=== PATIENT | male | born 1945 | race Caucasian/White ===

== ENCOUNTER → 2016-12-16 | Outpatient (CLI) | payer BC ==
[2016-04-26 11:00] VITALS: BP 119/63
[~2016-12-16] MED LIST: ASCO500T PO; ASCO500T2 PO; ASPI-612 PO; ASPI-630 PO; ATOR20TA PO; ATOR20TA58 PO; EZET10TA18 PO; LISI2.5T PO; METO-269 PO; METO10TA81 PO; METO25TA4 PO; MULT-240 PO; MULT1TAB6 PO; NAPR-634 PO; NIAC500T9 PO; OMEG1CAP27 PO; OMEG500C PO; PANT40TA5 PO; PRAS10TA9 PO; PRAV40TA2 PO; PROM25TA10 PO; VENTOLIN HFA18 GM IH
--- NOTE | 2016-12-17 11:03 | CARD ---
APPROVED REPORT EXAM: Two-dimensional and M-mode echocardiogram with Doppler and color Doppler. Other Information Quality : Average Rhythm : Pacemaker INDICATION Cardiac Disease: CAD 2D DIMENSIONS RVDd3.3 (2.9-3.5cm)Left Atrium(2D)3.6 (1.6-4.0cm) IVSd1.1 (0.7-1.1cm)Aortic Root(2D)3.1 (2.0-3.7cm) LVDd4.6 (3.9-5.9cm)LVOT Diameter2.0 (1.8-2.4cm) PWd1.1 (0.7-1.1cm)LVDs2.9 (2.5-4.0cm) FS (%) 30.7 %SV66.8 ml LVEF(%)60.9 (>50%) Aortic Valve AoV Peak Sheldon.253.4cm/sAoV VTI55.4cm AO Peak GR.25.7mmHgLVOT Peak Sheldon.65.3cm/s LVOT VTI 12.52cmAO Mean GR.15mmHg JIN (VTI)0.80cm2 Mitral Valve MV E Pwlizwjb073.4cm/sMV DECEL RRMW519ua MV A Jsiueamn94.9cm/sMV E Mean Gr.4mmHg MV MZC68huQ/A Ratio2.5 MV A Wvdzreps57eeSPI (PHT)5.50cm2 TDI E/Lateral E'6.0E/Medial E'5.1 Pulmonary Valve PV Peak Mojgzkzk74.9cm/sPV Peak Grad.3mmHg Tricuspid Valve TR P. Ykzgqnqs543jy/sRAP UYLVNSRC5kbYn TR Peak Gr.01xjCcFFTT88ehDh LEFT VENTRICLE The left ventricle is normal size. There is normal left ventricular wall thickness. Left ventricle sy stolic function is normal. The Ejection Fraction is 55-60%. Apical motion consistent with pacemaker a ctivation. The left ventricular diastolic function and filling is normal for age. There is no ventric ular septal defect visualized. RIGHT VENTRICLE The right ventricle is normal size. The right ventricular systolic function is normal. There is a pac emaker lead seen in the RV/RA. ATRIA The left atrium size is normal. The right atrium size is normal. The interatrial septum is intact wit h no evidence for an atrial septal defect or patent foramen ovale as noted on 2-D or Doppler imaging. AORTIC VALVE The aortic valve is moderately calcified and displays decreased opening. Doppler and Color Flow revea led no significant aortic regurgitation. Mild aortic stenosis with maximum pressure gradient of 26 mm Hg and mean pressure gradient of 15 mmHg. MITRAL VALVE Mitral annular calcification is mild to moderate. The mitral valve leaflets are thickened and calcifi ed. There is no mitral valve stenosis. Doppler and Color Flow revealed no mitral valve regurgitation noted. TRICUSPID VALVE The tricuspid valve is normal in structure and function. Doppler and Color Flow revealed mild tricusp id regurgitation. The PA pressure was estimated at 46 mmHg. There is no tricuspid valve stenosis. PULMONIC VALVE The pulmonic valve is not well visualized. Doppler and Color Flow revealed no pulmonic valvular regur gitation. There is no pulmonic valvular stenosis. GREAT VESSELS The aortic root is normal in size. The ascending aorta is normal in size. Pulmonary veins not well vi sualized. The IVC is normal in size and collapses >50% with inspiration. PERICARDIAL EFFUSION There is no evidence of significant pericardial effusion. Critical Notification Critical Value: No <Conclusion> Left ventricle systolic function is normal. The Ejection Fraction is 55-60%. There is a pacemaker lead seen in the RV/RA. Mild aortic stenosis with maximum pressure gradient of 26 mmHg and mean pressure gradient of 15 mmHg. Mild tricuspid regurgitation. The PA pressure was estimated at 46 mmHg. There is no evidence of significant pericardial effusion.
== END | disposition home or self-care (01) ==
LOC: ECHO 07:32
PROVIDERS: ATTEND Internal Medicine Cardiovascular Disease
DX: I25.10 Atherosclerotic heart disease of native coronary artery without angina pectoris (principal); I35.0 Nonrheumatic aortic (valve) stenosis; I07.1 Rheumatic tricuspid insufficiency
CPT/HCPCS: 93306

== ENCOUNTER → 2017-02-11 | Outpatient (CLI) | payer BC ==
[2016-04-26 11:00] VITALS: BP 119/63
--- NOTE | 2017-02-11 09:03 | RAD ---
CT of the chest without contrast, 02/11/2017: History: Cough Noncontrast scans were obtained as requested. There are 2 transvenous pacing leads extending into the right heart. There is moderate calcific plaquing of the thoracic aorta and its branches including the coronary arteries. No aortic aneurysm is evident. No mediastinal adenopathy is seen. A couple of minimal parenchymal scars are noted. No pulmonary mass or significant infiltrate is seen. There is no evidence of pleural fluid. There are moderate scattered degenerative changes in the thoracic spine. IMPRESSION: 1. Moderate calcific plaquing of the aorta and its branches including the coronary arteries. 2. No acute chest abnormality is detected. PQRS Compliance Statement: One or more of the following individualized dose reduction techniques were utilized for this examination: 1. Automated exposure control 2. Adjustment of the mA and/or kV according to patient size 3. Use of iterative reconstruction technique
== END | disposition home or self-care (01) ==
LOC: CT 07:37
PROVIDERS: ATTEND Family Medicine
DX: I70.0 Atherosclerosis of aorta (principal); R05 Cough
CPT/HCPCS: 71250

== ENCOUNTER → 2017-08-19 | Outpatient (CLI) | payer BC | END | disposition home or self-care (01) | LOC: RAD 13:45 | DX: M17.12 Unilateral primary osteoarthritis, left knee (principal); I10 Essential (primary) hypertension; E78.5 Hyperlipidemia, unspecified | CPT/HCPCS: 73562 ==

== ENCOUNTER → 2017-09-08 | Outpatient (CLI) | payer BC ==
[2017-09-08 08:39] LABS: ADD MAN DIFF? NO
[2017-09-08 08:49] LABS: BASO # 0.1 x10^3/uL (0.0-0.2); BASO % 1 % (0-3); EOS # 0.3 x10^3/uL (0.0-0.7); EOS % 4 % (0-3); HEMATOCRIT 49.2 % (39.0-53.0); HEMOGLOBIN 16.7 g/dL (13.0-17.5); LYMPH # 1.2 x10^3/uL (1.0-4.8); LYMPH % 17 % (24-48); MEAN CORPUSCULAR HEMOGLOBIN 32 pg (25-35); MEAN CORPUSCULAR HGB CONC 34 g/dL (31-37); MEAN CORPUSCULAR VOLUME 94 fL (79-100); MONO # 0.8 x10^3/uL (0.0-1.1); MONO % 12 % (0-9); NEUT # 4.4 x10^3uL (1.8-7.7); NEUT % 65 % (31-73); PLATELET COUNT 214 x10^3/uL (140-400); RED BLOOD COUNT 5.23 x10^6/uL (4.30-5.70); RED CELL DISTRIBUTION WIDTH 13.8 % (11.5-14.5); WHITE BLOOD COUNT 6.7 x10^3/uL (4.0-11.0)
[2017-09-08 08:55] LABS: ANION GAP 7 (6-14); BLOOD UREA NITROGEN 20 mg/dL (8-26); CALCIUM 9.3 mg/dL (8.5-10.1); CARBON DIOXIDE 34 mmol/L (21-32); CHLORIDE 102 mmol/L (98-107); CREATININE 0.7 mg/dL (0.7-1.3); GFR 111.2; GLUCOSE 112 mg/dL (70-99); POTASSIUM 4.3 mmol/L (3.5-5.1); SODIUM 143 mmol/L (136-145)
== END | disposition home or self-care (01) ==
LOC: LAB 07:52
DX: N40.1 Benign prostatic hyperplasia with lower urinary tract symptoms (principal); R79.89 Other specified abnormal findings of blood chemistry
CPT/HCPCS: 36415; 80048; 85025; 93005

== ENCOUNTER 2017-09-22 12:18 | Day surgery (SDC) | payer BC ==
[2017-09-22] MEDS: IV RINGERS,LACTATED 1000ML 1,000 ML IV (13:40)
[2017-09-22] MEDS ORDERED: fentaNYL PF VIAL 100 MCG/2 ML VIAL ×2 (13:47→16:00)
[2017-09-22] MEDS ORDERED: ONDANSETRON PF 4 MG/2 ML VIAL. (13:47)
[2017-09-22] MEDS ORDERED: LIDOCAINE 2% PF Vial for OR 5 ML VIAL. (13:47)
[2017-09-22] MEDS ORDERED: DEXAMETHASONE SOD PHOS 20 MG/5 ML VIAL. (13:47)
[2017-09-22] MEDS ORDERED: PROPOFOL 20 ML IV ×2 (13:47→14:45)
[2017-09-22] MEDS ORDERED: SUCCINYLCHOLINE 200 MG/10 ML VIAL. (13:51)
[2017-09-22] MEDS: CIPROFLOXACIN 400MG PREMIX 200 ML IV (14:30)
[2017-09-22] MEDS: LIDOCAINE 2% JELLY 6ML IN APPLICATOR. (15:34)
[2017-09-22] MEDS ORDERED: IV RINGERS,LACTATED 1000ML 1,000 ML IV ×2 (16:04→16:15)
[2017-09-22] MEDS ORDERED: LIDOCAINE 1% PF 2 ML VIAL. ID ×2 (16:15→16:30)
[2017-09-22] MEDS ORDERED: HYDROcodone/APAP 5/325MG 1 TAB TABLET PO (16:15)
[2017-09-22] MEDS ORDERED: MORPHINE SULFATE 2 MG/ML DISP.SYRIN. IV (16:15)
[2017-09-22] MEDS ORDERED: PROCHLORPERAZINE 10 MG/2 ML VIAL. IV ×2 (16:15→16:30)
[2017-09-22] MEDS ORDERED: fentaNYL PF VIAL 100 MCG/2 ML VIAL IV ×3 (16:15→16:30)
[2017-09-22] MEDS: fentaNYL PF VIAL 100 MCG/2 ML VIAL IV (16:15)
[2017-09-22] MEDS ORDERED: HYDROcodone/APAP 5/325MG 1 TAB TABLET (16:21)
[2017-09-22] MEDS ORDERED: MORPHINE SULFATE 4 MG/ML DISP.SYRIN. IV (16:30)
[2017-09-22] MEDS: HYDROcodone/APAP 5/325MG 1 TAB TABLET PO (16:34)
== END 2017-09-22 17:57 | disposition home or self-care (01) ==
LOC: SURG 12:18
DX: N40.1 Benign prostatic hyperplasia with lower urinary tract symptoms (principal); N13.8 Other obstructive and reflux uropathy; N35.8 Other urethral stricture; Z79.82 Long term (current) use of aspirin; Z79.899 Other long term (current) drug therapy; Z88.8 Allergy status to other drugs, medicaments and biological substances; Z98.890 Other specified postprocedural states; Z90.49 Acquired absence of other specified parts of digestive tract; Z95.5 Presence of coronary angioplasty implant and graft; Z95.0 Presence of cardiac pacemaker; E78.00 Pure hypercholesterolemia, unspecified; Z82.3 Family history of stroke; F17.210 Nicotine dependence, cigarettes, uncomplicated; Z72.89 Other problems related to lifestyle; I25.10 Atherosclerotic heart disease of native coronary artery without angina pectoris; I10 Essential (primary) hypertension; J44.9 Chronic obstructive pulmonary disease, unspecified; G47.30 Sleep apnea, unspecified; M19.90 Unspecified osteoarthritis, unspecified site; Z85.820 Personal history of malignant melanoma of skin; Z82.49 Family history of ischemic heart disease and other diseases of the circulatory system
CPT/HCPCS: 52648; A7015; J0330; J1100; J2405; J2704; J3010; J7120

== ENCOUNTER 2018-06-12 09:39 | Emergency (ER) | payer BC ==
[~2018-06-12] VITALS: Ht 182.9 cm; Wt 127.0 kg
[~2018-06-12 09:39] MED LIST changes: +HYDR-3164 PO; -PANT40TA5 PO; +PANT40TA77 PO; +PHEN100T82 PO
[2018-06-12 10:38] LABS: BASO # 0.1 x10^3/uL (0.0-0.2); BASO % 1 % (0-3); EOS # 0.2 x10^3/uL (0.0-0.7); EOS % 4 % (0-3); HEMOGLOBIN 17.1 g/dL (13.0-17.5); LYMPH % 15 % (24-48); MEAN CORPUSCULAR HEMOGLOBIN 31 pg (25-35); MEAN CORPUSCULAR HGB CONC 33 g/dL (31-37); MEAN CORPUSCULAR VOLUME 96 fL (79-100); MONO # 0.8 x10^3/uL (0.0-1.1); MONO % 11 % (0-9); NEUT # 4.6 x10^3uL (1.8-7.7); NEUT % 69 % (31-73); PLATELET COUNT 215 x10^3/uL (140-400); RED BLOOD COUNT 5.45 x10^6/uL (4.30-5.70); RED CELL DISTRIBUTION WIDTH 14.3 % (11.5-14.5); WHITE BLOOD COUNT 6.7 x10^3/uL (4.0-11.0)
[2018-06-12 10:45] LABS: INFLUENZA A PATIENT NEGATIVE (NEGATIVE); INFLUENZA B PATIENT POSITIVE (NEGATIVE)
[2018-06-12 10:58] LABS: CALCIUM 9.1 mg/dL (8.5-10.1); CREATININE 0.8 mg/dL (0.7-1.3); POTASSIUM 4.1 mmol/L (3.5-5.1)
[2018-06-12 11:04] LABS: ALBUMIN 3.5 g/dL (3.4-5.0); ALBUMIN/GLOBULIN RATIO 0.9 (1.0-1.7); TOTAL BILIRUBIN 0.3 mg/dL (0.2-1.0); TOTAL PROTEIN 7.4 g/dL (6.4-8.2)
--- NOTE | 2018-06-12 11:04 | RAD ---
Indication:Dyspnea TECHNIQUE:Portable AP chest X-ray COMPARISON: None FINDINGS: Heart is top normal in size. Left chest wall cardiac pacer with its leads ejecting over the heart. Prominent central bilateral bronchial markings. No focal consolidation. No pneumothorax or effusion. Visualized bony thorax within normal limits. IMPRESSION: Findings suggests bronchitis. Electronically signed by: Justin Quezada DO (06/12/2018 10:59 AM) [facility]
[2018-06-12 11:52] LABS: BILIRUBIN,URINE NEGATIVE (NEG); CLARITY,URINE CLEAR; COLOR,URINE YELLOW; NITRITE,URINE NEGATIVE (NEG); PROTEIN,URINE 100 mg/dL (NEG-TRACE)
[2018-06-12 11:56] LABS: SQUAMOUS EPITHELIAL CELL,UR FEW /LPF
[2018-06-12 11:57] LABS: BACTERIA,URINE FEW /HPF (0-FEW)
[2018-06-12] MEDS ORDERED: IPRATRPIUM/ALBUTEROL 0.5/2.5MG 3 ML NEBU. NEB ONE (13:00)
[2018-06-12] MEDS ORDERED: AMOX1TAB61 PO (13:29)
[2018-06-12] MEDS ORDERED: METH4TAB2 PO (13:29)
--- NOTE | 2018-06-12 13:29 | PHYS DOC ---
Past Medical History Past Medical History: COPD, Diverticulitis, High Cholesterol, Hypertension, Other Additional Past Medical Histor: sick sinus syndrome Past Surgical History: Angioplasty, Appendectomy, Cholecystectomy, Pacemaker, Tonsillectomy Alcohol Use: Occasionally Drug Use: None Adult General Chief Complaint Chief Complaint: SHORTNESS OF BREATH [facility] HPI Patient is a 73-year-old male who presents with complaint of cough, wheezing and shortness of breath last week. Patient states that he feels like he is been running a fever but is not sure. Patient states that over the last couple of days that shortness of breath is worsened. He does admit to a history of COPD. Patient states that he has also had a cough that has been productive of yellow- green sputum. He denies any chest pain and has had no nausea, vomiting or diaphoresis. Patient states that the chest pain is worsened with exertion. Review of Systems Review of Systems Constitutional: Positive subjective fever and chills [] HENT: [place] of congestion[] Respiratory: Complains of cough, wheezing and shortness of breath [] Cardiovascular: No additional information not addressed in HPI [] GI: Denies abdominal pain, nausea, vomiting or diarrhea [] Integument: Denies rash or skin lesions [] Neurologic: Denies headache, focal weakness or sensory changes [] All other systems were reviewed and found to be within normal limits, except as documented in this note. Current Medications Current Medications Current Medications Medications (Trade) Dose Ordered Sig/Reynaldo Start Time Stop Time Status Last Admin Dose Admin Albuterol/ Ipratropium (Duoneb) 3 ml 1X ONCE 06/12/18 13:00 06/12/18 13:01 DC 06/12/18 12:49 3 ML Allergies Allergies Allergies Coded Allergies Type Severity Reaction Last Updated Verified Qkjfkpl-Bzq-Qpc Reductase Inhibitor Adverse Reaction Severe 09/21/17 Yes Physical Exam Physical Exam Constitutional: Well developed, well nourished, no acute distress, non-toxic appearance. [] HENT: Normocephalic, atraumatic, bilateral external ears normal, oropharynx moist, no oral exudates, nose normal. [] Eyes: PERRLA, EOMI, conjunctiva normal, no discharge. [] Neck: Normal range of motion, no tenderness, supple. [] Cardiovascular: Regular rate and rhythm[] Lungs & Thorax: There are inspiratory and expiratory wheezes as well as fine rhonchi in the lung bases to auscultation [] Abdomen: Bowel sounds normal, soft, no tenderness. [] Skin: Warm, dry, no erythema, no rash. [] Extremities: No tenderness, no cyanosis, no clubbing, ROM intact, with lower extremity edema. [] Neurologic: Alert and oriented X 3, no focal deficits noted. [] Current Patient Data Vital Signs Vital Signs Date Time Temp Pulse Resp B/P (MAP) Pulse Ox O2 Delivery O2 Flow Rate FiO2 06/12/18 13:30 76 158/74 (102) 96 Room Air 06/12/18 09:59 98.7 22 98.7 Lab Values Laboratory Tests Test 06/12/18 10:12 06/12/18 10:15 06/12/18 11:10 Influenza Type A Antigen Negative (NEGATIVE) Influenza Type B Antigen Positive (NEGATIVE) White Blood Count 6.7 x10^3/uL (4.0-11.0) Red Blood Count 5.45 x10^6/uL (4.30-5.70) Hemoglobin 17.1 g/dL (13.0-17.5) Hematocrit 52.0 % (39.0-53.0) Mean Corpuscular Volume 96 fL (79-100) Mean Corpuscular Hemoglobin 31 pg (25-35) Mean Corpuscular Hemoglobin Concent 33 g/dL (31-37) Red Cell Distribution Width 14.3 % (11.5-14.5) Platelet Count 215 x10^3/uL (140-400) Neutrophils (%) (Auto) 69 % (31-73) Lymphocytes (%) (Auto) 15 % (24-48) L Monocytes (%) (Auto) 11 % (0-9) H Eosinophils (%) (Auto) 4 % (0-3) H Basophils (%) (Auto) 1 % (0-3) Neutrophils # (Auto) 4.6 x10^3uL (1.8-7.7) Lymphocytes # (Auto) 1.0 x10^3/uL (1.0-4.8) Monocytes # (Auto) 0.8 x10^3/uL (0.0-1.1) Eosinophils # (Auto) 0.2 x10^3/uL (0.0-0.7) Basophils # (Auto) 0.1 x10^3/uL (0.0-0.2) Sodium Level 142 mmol/L (136-145) Potassium Level 4.1 mmol/L (3.5-5.1) Chloride Level 102 mmol/L (98-107) Carbon Dioxide Level 32 mmol/L (21-32) Anion Gap 8 (6-14) Blood Urea Nitrogen 19 mg/dL (8-26) Creatinine 0.8 mg/dL (0.7-1.3) Estimated GFR (Cockcroft-Gault) 95.0 BUN/Creatinine Ratio 24 (6-20) H Glucose Level 98 mg/dL (70-99) Calcium Level 9.1 mg/dL (8.5-10.1) Total Bilirubin 0.3 mg/dL (0.2-1.0) Aspartate Amino Transferase (AST) 22 U/L (15-37) Alanine Aminotransferase (ALT) 32 U/L (16-63) Alkaline Phosphatase 69 U/L (46-116) Troponin I Quantitative < 0.017 ng/mL (0.000-0.055) VA-Wlf-F-Type Natriuretic Peptide 536 pg/mL (0-124) H Total Protein 7.4 g/dL (6.4-8.2) Albumin 3.5 g/dL (3.4-5.0) Albumin/Globulin Ratio 0.9 (1.0-1.7) L Urine Collection Type Unknown Urine Color Yellow Urine Clarity Clear Urine pH 6.0 Urine Specific Arp >=1.030 Urine Protein 100 mg/dL (NEG-TRACE) Urine Glucose (UA) Negative mg/dL (NEG) Urine Ketones (Stick) Negative mg/dL (NEG) Urine Blood Negative (NEG) Urine Nitrite Negative (NEG) Urine Bilirubin Negative (NEG) Urine Urobilinogen Dipstick 1.0 mg/dL (0.2 mg/dL) Urine Leukocyte Esterase Negative (NEG) Urine RBC 1-2 /HPF (0-2) Urine WBC 1-4 /HPF (0-4) Urine Squamous Epithelial Cells Few /LPF Urine Bacteria Few /HPF (0-FEW) Urine Mucus Marked /LPF Laboratory Tests 06/12/18 10:15 Laboratory Tests 06/12/18 10:15 EKG EKG [] Radiology/Procedures Radiology/Procedures [] Impressions: PROCEDURE: PORTABLE CHEST 1V Indication:Dyspnea TECHNIQUE:Portable AP chest X-ray COMPARISON: None FINDINGS: Heart is top normal in size. Left chest wall cardiac pacer with its leads ejecting over the heart. Prominent central bilateral bronchial markings. No focal consolidation. No pneumothorax or effusion. Visualized bony thorax within normal limits. IMPRESSION: Findings suggests bronchitis. Electronically signed by: Justin Quezada DO (06/12/2018 10:59 AM) [facility] Course & Med Decision Making Course & Med Decision Making Pertinent Labs and Imaging studies reviewed. (See chart for details) [] Dragon Disclaimer Dragon Disclaimer This electronic medical record was generated, in whole or in part, using a voice recognition dictation system. Departure Departure Impression: Primary Impression: Acute bronchitis Additional Impression: Influenza B Disposition: 01 HOME, SELF-CARE Condition: STABLE Referrals: KYLE ONOFRE MD (PCP) Patient Instructions: Acute Bronchitis, Influenza, Adult Scripts Methylprednisolone (MEDROL) 4 Mg Tab.ds.pk 1 PKG PO UD, #1 PKG Prov: HOLLIS GALAVIZ Jr., DO 06/12/18 Amoxicillin/Potassium Clav (AUGMENTIN 875-125 TABLET) 1 Each Tablet 1 TAB PO BID, #20 TAB Prov: HOLLIS GALAVIZ Jr., DO 06/12/18 Problem Qualifiers Primary Impression: Acute bronchitis Bronchitis organism: unspecified organism Qualified Codes: J20.9 - Acute bronchitis, unspecified HOLLIS GALAVIZ Jr., DO Jun 12, 2018 13:29
[2018-06-12 13:30] VITALS: BP 158/74
--- NOTE | 2018-06-14 11:06 | EKG ---
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
== END 2018-06-12 13:40 | disposition home or self-care (01) ==
LOC: ER 09:39
DX: J10.1 Influenza due to other identified influenza virus with other respiratory manifestations (principal); J20.9 Acute bronchitis, unspecified; J44.9 Chronic obstructive pulmonary disease, unspecified; E78.00 Pure hypercholesterolemia, unspecified; I10 Essential (primary) hypertension; Z95.0 Presence of cardiac pacemaker; Z95.5 Presence of coronary angioplasty implant and graft; Z90.89 Acquired absence of other organs; Z90.49 Acquired absence of other specified parts of digestive tract; Z91.041 Radiographic dye allergy status
CPT/HCPCS: 36415; 71045; 80053; 81001; 83880; 84484; 85025; 87804; 93005; 94640; 99284; J7620

== ENCOUNTER → 2018-09-30 | Outpatient (CLI) | payer BC ==
[~2018-09-30] MED LIST changes: +AMOX1TAB61 PO; +METH4TAB2 PO; +PANT40TA5 PO; -PANT40TA77 PO
[2018-09-30 08:32] LABS: BASO # 0.1 x10^3/uL (0.0-0.2); BASO % 1 % (0-3); EOS # 0.4 x10^3/uL (0.0-0.7); EOS % 5 % (0-3); HEMATOCRIT 52.4 % (39.0-53.0); HEMOGLOBIN 17.3 g/dL (13.0-17.5); LYMPH # 1.2 x10^3/uL (1.0-4.8); LYMPH % 17 % (24-48); MEAN CORPUSCULAR HEMOGLOBIN 31 pg (25-35); MEAN CORPUSCULAR HGB CONC 33 g/dL (31-37); MEAN CORPUSCULAR VOLUME 94 fL (79-100); MONO # 0.9 x10^3/uL (0.0-1.1); MONO % 12 % (0-9); NEUT # 4.6 x10^3uL (1.8-7.7); NEUT % 65 % (31-73); PLATELET COUNT 207 x10^3/uL (140-400); RED BLOOD COUNT 5.56 x10^6/uL (4.30-5.70); RED CELL DISTRIBUTION WIDTH 14.5 % (11.5-14.5); WHITE BLOOD COUNT 7.2 x10^3/uL (4.0-11.0)
[2018-09-30 09:19] LABS: ALBUMIN 3.6 g/dL (3.4-5.0); ALBUMIN/GLOBULIN RATIO 1.1 (1.0-1.7); CALCIUM 9.7 mg/dL (8.5-10.1); CREATININE 0.9 mg/dL (0.7-1.3); GFR 82.9; POTASSIUM 5.1 mmol/L (3.5-5.1); TOTAL BILIRUBIN 0.4 mg/dL (0.2-1.0)
== END | disposition home or self-care (01) ==
LOC: LAB 07:59
PROVIDERS: ATTEND Psychiatry & Neurology Neurology
DX: R53.1 Weakness (principal)
CPT/HCPCS: 36415; 80053; 82550; 82607; 84443; 85025

== ENCOUNTER → 2018-10-18 | Outpatient (CLI) | payer BC ==
--- NOTE | 2018-10-18 17:34 | KCIC ---
LUMBAR SPINE 1V History: Chronic low back pain Comparison: None. Findings: Single lateral view of the lumbar spine is submitted, only lateral view as per request. Vertebral body stature is maintained. There is negligible anterior spondylolisthesis at L4-5, very minimal posterior subluxation L1 relative to to L2 and L2 relative to L3. There is multilevel lumbar facet degenerative change. There is mild tube moderate degenerative disc disease L1-L2, minimally at L2-3 and L4-5. There is multilevel mild spondylosis greatest at L2-3. There is atherosclerotic calcification of the abdominal aorta, also likely aneurysmal dilatation of the abdominal aorta. Impression: 1. There is multilevel spondylosis, also degenerative disc disease as stated. There is multilevel lumbar facet degenerative change. 2. There is atherosclerotic calcification abdominal aorta, also degree of aneurysmal dilatation poorly characterized on this exam. Electronically signed by: Mohit Stokes MD (10/18/2018 5:31 PM) [id number]
--- NOTE | 2018-10-19 12:37 | KCIC ---
KNEE STANDING BILAT AP History: DJD of both knees, pain greater on the left Comparison: None. Findings: AP standing view of the bilateral knees are submitted. Knee joint spaces are relatively preserved, no acute fracture or dislocation identified. Impression: 1. No acute osseous abnormality is identified. Electronically signed by: Mohit Stokes MD (10/19/2018 12:34 PM) [id number]
== END | disposition home or self-care (01) ==
LOC: KCIC 11:30
PROVIDERS: ATTEND Physical Medicine & Rehabilitation
DX: S33.110A Subluxation of L1/L2 lumbar vertebra, initial encounter (principal); M47.816 Spondylosis without myelopathy or radiculopathy, lumbar region; M17.0 Bilateral primary osteoarthritis of knee; I70.0 Atherosclerosis of aorta; G89.29 Other chronic pain; X58.XXXA Exposure to other specified factors, initial encounter; Y93.89 Activity, other specified; Y92.89 Other specified places as the place of occurrence of the external cause; Y99.8 Other external cause status
CPT/HCPCS: 72020; 73565

== ENCOUNTER → 2018-10-27 | Outpatient (CLI) | payer BC ==
[~2018-10-27] MED LIST changes: -PANT40TA5 PO; +PANT40TA77 PO
[2018-10-27 11:55] LABS: POTASSIUM 4.3 mmol/L (3.5-5.1)
== END | disposition home or self-care (01) ==
LOC: LAB 11:11
PROVIDERS: ATTEND Psychiatry & Neurology Neurology
DX: R53.1 Weakness (principal)
CPT/HCPCS: 80051; 83519; 83520; 84238

== ENCOUNTER → 2018-11-08 | Outpatient (CLI) | payer BC ==
--- NOTE | 2018-11-08 08:29 | RAD ---
Examination: CT CERVICAL SPINE WO CONTRAST History: Weakness, gait instability Comparison/Correlation: None Findings: Axial images of the cervical spine are obtained. Sagittal and coronal reformatted images were provided. Moderate C4-5 and C5-6 disc space narrowing. Severe C6/7 disc space narrowing. Soft tissues of the neck are unremarkable other than calcific involvement of the carotid bulb bilaterally. Atlantoaxial joint degenerative remodeling is present. C2-3: Minimal central disc protrusion. Mild disc space narrowing. C3-4: Marked disc osteophyte complex and spurring. Slightly less than 50 percent effacement of the spinal canal. Effacement of the thecal sac noted. Deformity of the spinal cord contour is suspected. Facet joint hypertrophy is mild. Marked right neural foraminal bony encroachment and narrowing. Possibility of associated nerve root compression is not excluded C4-5: Disc osteophyte complex is noted. Significant endplate spurring. Significant effacement of the thecal sac with deformity of the contour of the spinal cord. Spinal canal narrowing by less than 50 percent. Bony encroachment on the neural foramina bilaterally noted of mild extent. C5-6: Disc osteophyte complex is noted with effacement of the thecal sac and spinal canal narrowing. Bony encroachment on the left neural foramen noted. C6/7: Marked disc osteophyte complex with spurring of the endplates. Thecal sac effacement and spinal canal narrowing. Bony encroachment on neural foramina bilaterally seen. C7-T1: Endplate spurring is mild. Impression: Significant degenerative changes throughout the cervical spine. Severe multilevel spinal canal narrowing. Effacement of the thecal sac due to disc osteophyte complex and endplate spurring. Deformity of the spinal cord morphology is also suggested at multiple levels. Severe right C3-4 neural foraminal narrowing. PQRS Compliance Statement: One or more of the following individualized dose reduction techniques were utilized for this examination: 1. Automated exposure control 2. Adjustment of the mA and/or kV according to patient size 3. Use of iterative reconstruction technique Electronically signed by: Chaz Roger MD (11/08/2018 8:27 AM) [facility]
== END | disposition home or self-care (01) ==
LOC: CT 07:10
PROVIDERS: ATTEND Psychiatry & Neurology Neurology
DX: M48.02 Spinal stenosis, cervical region (principal); M50.21 Other cervical disc displacement, high cervical region; M47.812 Spondylosis without myelopathy or radiculopathy, cervical region; M25.78 Osteophyte, vertebrae; M89.38 Hypertrophy of bone, other site; M77.8 Other enthesopathies, not elsewhere classified
CPT/HCPCS: 72125

== ENCOUNTER → 2018-11-08 | Outpatient (CLI) | payer BC ==
--- NOTE | 2018-11-08 08:15 | RAD ---
MR#: [id number] Date of Study: 11/08/2018 Ordering Physician: BONNY DU, Referring Physician: BONNY DU, Tech: Antonio Villarreal MBA, RDMS, RVT, RDCS, RTR APPROVED REPORT Patient Location: OUT-PATIENT Indications AAA Duplex Results A/PTransverseLongitudinal Proximal Aorta 3.0cm2.7cm Mid Aorta 3.0cm2.5cm Distal Aorta 3.4cm2.5cm Rt. Common Iliac Artery2.1cm Lt. Common Iliac Artery 2.0cm Findings Grayscale images of the abdominal aorta are grossly notable for diffuse adventitial plaque. No high-g rade stenosis is identified on limited images. No significant velocity acceleration is noted on spectral imaging. The distal abdominal aorta measures approximately 3.4 cm but the images are limited nonetheless no si gnificant aneurysm is noted. Critical Notification Critical Value: No <Conclusion> 1. Small distal abdominal aortic aneurysm measuring approximately 3.4 cm Signed by : Kyrie Kaur, Electronically Approved : 11/08/2018 08:15:18
== END | disposition home or self-care (01) ==
LOC: US 07:06
PROVIDERS: ATTEND Internal Medicine Cardiovascular Disease
DX: I71.4 Abdominal aortic aneurysm, without rupture (principal); I70.0 Atherosclerosis of aorta
CPT/HCPCS: 76770

== ENCOUNTER → 2020-09-18 | Outpatient (CLI) | payer BC ==
[~2020-09-18] MED LIST changes: -ASCO500T PO; -ASCO500T2 PO; +ASCO500T4 PO; +ASCO500T53 PO; -ASPI-612 PO; +ASPI-886 PO; -EZET10TA18 PO; +EZET10TA20 PO
--- NOTE | 2020-09-18 14:57 | KCIC ---
EXAM: Chest, 2 views. HISTORY: Shortness of breath. COMPARISON: None. FINDINGS: 2 views of the chest are obtained. There is suspected bilateral infrahilar atelectasis or p leural parenchymal scarring. There is no consolidation, pleural effusion or pneumothorax. There is a cardiac pacemaker in expected position. The heart is normal in size. IMPRESSION: No acute pulmonary finding. Electronically signed by: Amanda Machuca MD (09/18/2020 2:54 PM) [id number]
== END ==
LOC: KCIC 13:00
PROVIDERS: ATTEND Nurse Practitioner Gerontology
DX: J44.9 Chronic obstructive pulmonary disease, unspecified (principal); F17.200 Nicotine dependence, unspecified, uncomplicated
CPT/HCPCS: 71046

== ENCOUNTER → 2020-10-10 | Outpatient (CLI) | payer BC ==
--- NOTE | 2020-10-10 17:23 | CARD ---
MR#: [id number] Date of Study: 10/10/2020 Ordering Physician: BONNY ROBBINS, Referring Physician: Ida SCOTT: Moustapha Macias [facility] APPROVED REPORT EXAM: Two-dimensional and M-mode echocardiogram with Doppler and color Doppler. Other Information Quality : AverageHR: 96bpm Rhythm : NSR INDICATION Sick sinus syndrome RISK FACTORS Obesity Hyperlipidemia 2D DIMENSIONS Left Atrium(2D)4.2 (1.6-4.0cm)IVSd1.7 (0.7-1.1cm) Aortic Root(2D)3.5 (2.0-3.7cm)LVDd4.4 (3.9-5.9cm) LVOT Diameter2.0 (1.8-2.4cm)PWd1.7 (0.7-1.1cm) LVDs2.8 (2.5-4.0cm)FS (%) 36.6 % SV58.1 mlLVEF(%)66.6 (>50%) Aortic Valve AoV Peak Sheldon.274.2cm/sAoV VTI52.5cm AO Peak GR.30.1mmHgLVOT Peak Sheldon.100.5cm/s AO Mean GR.17mmHgAVA (VMAX)1.17cm2 Mitral Valve MV E Peak Gr.14mmHgMV E Mean Gr.5mmHg Pulmonary Valve PV Peak Ciuxkcut65.1cm/s Tricuspid Valve TR P. Hkeseqam701vh/sTR Peak Gr.14mmHg Pulmonary Vein S1 Udxmakff45.0cm/sD2 Zhoxolcv72.7cm/s LEFT VENTRICLE The left ventricle is normal size. There is moderate concentric left ventricular hypertrophy. The lef t ventricular systolic function is normal. The ejection fraction is 55-60%. There is normal LV segmen zach wall motion. No left ventricle thrombus noted on this study. RIGHT VENTRICLE The right ventricle is normal size. There is normal right ventricular wall thickness. The right ventr icular systolic function is normal. ATRIA The left atrium is mildly dilated. The right atrium size is normal. AORTIC VALVE The aortic valve is mildly to moderately thickened. Doppler and Color Flow revealed no significant ao rtic regurgitation. There is mild valvular aortic stenosis. There is no aortic valvular vegetation. MITRAL VALVE The mitral valve is normal in structure and function. There is no evidence of mitral valve prolapse. There is no mitral valve stenosis. Doppler and Color Flow revealed no mitral valve regurgitation note d. TRICUSPID VALVE The tricuspid valve is normal in structure and function. Doppler and Color Flow revealed trace tricus pid regurgitation. There is no tricuspid valve prolapse or vegetation. There is no tricuspid valve st enosis. PULMONIC VALVE The pulmonary valve is normal in structure and function. Doppler and Color Flow revealed no pulmonic valvular regurgitation. There is no pulmonic valvular stenosis. GREAT VESSELS The aortic root is normal in size. The ascending aorta is normal in size. The pulmonary artery is nor mal. PERICARDIAL EFFUSION There is no pleural effusion. There is no evidence of significant pericardial effusion. Critical Notification Critical Value: No <Conclusion> The left ventricular systolic function is normal. The ejection fraction is 55-60%. There is normal LV segmental wall motion. Pacer wire noted RA/RV. Trace tricuspid regurgitation. There is no evidence of significant pericardial effusion. Signed by : Bonny Robbins, Electronically Approved : 10/10/2020 17:22:24
== END ==
LOC: ECHO 13:48
PROVIDERS: ATTEND Internal Medicine Cardiovascular Disease
DX: I49.5 Sick sinus syndrome (principal); I51.7 Cardiomegaly
CPT/HCPCS: 93306

== ENCOUNTER → 2020-12-16 | Outpatient (CLI) | payer BC ==
[~2020-12-16] MED LIST changes: -LISI2.5T PO; +LISI2.5T12 PO
--- NOTE | 2020-12-16 12:03 | KCIC ---
EXAM: CT CHEST WITHOUT CONTRAST (LDCT LUNG CANCER SCREENING). HISTORY: Risk factors for pulmonary malignancy. 75-year-old male with 50 pack-year history of smoking . TECHNIQUE: CT of the chest was performed without intravenous contrast using a low-dose lung screening protocol. Findings analysis is based on ACR Lung-RADS v1.1. *One or more of the following individual ized dose reduction techniques were utilized for this examination: 1. Automated exposure control. 2. Adjustment of the mA and/or kV according to patient size. 3. Use of iterative reconstruction technique. RADIATION DOSE: DLP: 176.7 CTDI VOL(per sequence): 4.96 COMPARISON: None. FINDINGS: Nodules: No clinically suspicious nodules. Linear opacity in the lingula likely atelectasis/scar. Other findings: Images of the upper abdomen reveal no acute abnormality. Bone windows reveal no suspi cious lesions. There are no pathologically enlarged mediastinal or axillary lymph nodes. There is no pleural or giovany cardial effusion. Dual-lead cardiac pacer is present. There are severe coronary artery calcifications . There are calcifications associated with the mitral and aortic valves. Moderate atherosclerosis. No pulmonary parenchymal process is identified. IMPRESSION/RECOMMENDATION: 1. ACR Lung-RADS category: 1 . 2. Continue annual screening with LDCT in 12 months. Electronically signed by: Pollo Peterson (12/16/2020 12:00 PM) [id number]
== END ==
LOC: KCIC CT 09:10
PROVIDERS: ATTEND Internal Medicine Pulmonary Disease
DX: Z12.2 Encounter for screening for malignant neoplasm of respiratory organs (principal); I08.0 Rheumatic disorders of both mitral and aortic valves; I25.10 Atherosclerotic heart disease of native coronary artery without angina pectoris; F17.210 Nicotine dependence, cigarettes, uncomplicated
CPT/HCPCS: 71271

== ENCOUNTER → 2020-12-24 | Outpatient (CLI) | payer BC ==
[~2020-12-24] MED LIST changes: +ACET325T21 PO; +AMOX1TAB58 PO; +FURO20TA3 PO; +FURO40TA4 PO; +GUAI5SYR PO; +IPRA3AMP29 NEB; +LACT1CAP19 PO; +MIRA25TA PO; +OMEP20CA16 PO
--- NOTE | 2020-12-25 20:01 | SLEEP ---
DATE OF STUDY: 12/24/2020 REFERRING PHYSICIAN: Dr. Shlomo Aguilar. The patient is a 75-year-old who weighs 310 pounds with a BMI of 42. The patient's [place] score was 13. The patient underwent home sleep study performed at [facility]. SLEEP ARCHITECTURE: Total recording time was 870 minutes. During the night study, the patient had 15 central apneas, 90 mixed apneas, 10 obstructive apneas and 165 hypopneas. The patient's AHI was 37.5 per hour. Nocturnal oximetry study revealed an average oxygen saturation of 80% with a lowest of 61%. 394 minutes were spent with oxygen saturation less than 85%. 122 minutes with saturation less than 80% and 25 minutes with saturation of less than 70%. Mean heart rate 91 beats per minute. IMPRESSION: 1. Severe obstructive sleep apnea at an AHI of 37.5 per hour. 2. Severe nocturnal hypoxia secondary to obstructive sleep apnea and suspected hypoventilation. RECOMMENDATIONS: 1. The patient would benefit from in-lab CPAP titration study due to the severity of apnea, nocturnal hypoxia. 2. Once the patient is optimally treated with CPAP, then follow up in 4-6 weeks to assess compliance and to document clinical improvement. 3. Weight loss is strongly advised. 4. Avoid [place] depressants. 5. Cautioned regarding driving until symptoms of sleep apnea resolve with the use of CPAP. ROBERT DR: Beatriz TID: [id number]
== END ==
LOC: RT 08:57
PROVIDERS: ATTEND Internal Medicine Pulmonary Disease
DX: G47.33 Obstructive sleep apnea (adult) (pediatric) (principal); R09.02 Hypoxemia
CPT/HCPCS: G0399

== ENCOUNTER → 2021-01-27 | Outpatient (CLI) | payer BC ==
[2021-01-04 15:00] VITALS: BP 131/62
--- NOTE | 2021-01-28 11:25 | SLEEP ---
DATE OF STUDY: 01/27/2021 ATTENDING PHYSICIAN: Dr. Villar. REFERRING PHYSICIAN: Dr. Shlomo Aguilar. The patient is a 75-year-old who weighs 301 pounds with a BMI of 41. The patient's [place] score was 12. The patient has a previous home sleep study which showed severe SHIVA at an AHI of 37 per hour. The patient returned to the sleep lab for CPAP titration study. During the night of the study, the patient spent 495 minutes in bed and slept for 291 minutes with a sleep efficiency of 59%. Sleep latency was 41 minutes with a REM latency of 190 minutes. Sleep architecture showed increased stage I and stage II sleep, normal slow wave and reduced REM sleep. The patient's EKG monitoring revealed no arrhythmias. Average heart rate was 90 beats per minute. No significant PLMS seen. The patient was started on CPAP at 5 cm water and titrated up to 9 cm water. At the final pressure, the patient slept for 83 minutes. The patient had supine sleep, but no REM sleep. The patient's AHI was reduced to 2 per hour. The patient's oxygen saturation fluctuated in the high 80s to low 90s. One spot desaturation of 73%. The patient would benefit from O2 at 2 liters. IMPRESSION: 1. Severe sleep apnea diagnosed by previous sleep study. No significant PLMS. 2. Nocturnal hypoxia secondary to combination of obstructive sleep apnea and suspected hypoventilation. RECOMMENDATIONS: 1. CPAP at 9 cm water with 2 liters of supplemental oxygen, should be used on a nightly basis. 2. Follow up in 4-6 weeks to assess compliance and to document clinical improvement. 3. Weight loss is advised. 4. Avoid [employer] depressants. 5. Cautioned regarding driving until symptoms of sleep apnea resolve with above recommendations. ROBERT DR: Beatriz TID: [id number]
== END ==
LOC: RT 18:53
PROVIDERS: ATTEND Internal Medicine Pulmonary Disease
DX: G47.33 Obstructive sleep apnea (adult) (pediatric) (principal)
CPT/HCPCS: 95811